=== PATIENT | female | born 1970 | race Caucasian/White ===

== ENCOUNTER 2021-02-17 10:03 | Day surgery (SDC) | payer MEDICAID ==
[~2021-02-17] VITALS: Ht 149.9 cm; Wt 60.3 kg
[2021-02-17] VITALS (8 sets, daily range): BP systolic 100–105; BP diastolic 61–71
[2021-02-17] MEDS ORDERED: cefazolin/dext.iso 2gm/100ml IV ONE (10:58)
[2021-02-17] MEDS ORDERED: famotidine 20mg tablet PO ONE (11:09)
[2021-02-17] MEDS ORDERED: albuterol 2.5 MG/3 ML nebule NEB PRN (11:10)
[2021-02-17] MEDS ORDERED: ringers solution, lacted 1,000 ML IV SCH (11:15)
[2021-02-17] MEDS ORDERED: LORazepam 1 MG tablet PO PRN (11:15)
[2021-02-17] MEDS ORDERED: LORazepam 0.5 MG tablet PO PRN (11:20)
[2021-02-17] MEDS ORDERED: LIDOcaine 0.5% (5mg/ml) 50ml vial ONE (11:21)
[2021-02-17] MEDS ORDERED: midazolam 1 mg/ML 2ml injection ONE (11:23)
[2021-02-17] MEDS ORDERED: fentaNYL/PF 50MCG/1 ML 2ML syringe ONE (11:23)
[2021-02-17 11:32] LABS: BASOPHILS % (AUTO) 0.6 % (0-1); EOSINOPHILS # (AUTO) 0.1 X10'3 (0-0.9); EOSINOPHILS % (AUTO) 1.9 % (0-6); LYMPHOCYTES # (AUTO) 2.5 X10'3 (1.1-4.8); LYMPHOCYTES % (AUTO) 31.2 % (21-51); MEAN CORPUSCULAR HEMOGLOBIN 32.3 PG (27.0-31.0); MEAN CORPUSCULAR HGB CONC 34.1 g/dL (33.0-36.5); MEAN CORPUSCULAR VOLUME 94.6 FL (78-98); MONOCYTES # (AUTO) 0.6 X10'3 (0-0.9); MONOCYTES % (AUTO) 7.5 % (2-12); NEUTROPHILS # (AUTO) 4.7 X10'3 (1.8-7.7); NEUTROPHILS % (AUTO) 58.8 % (42-75); PRE OP HEMATOCRIT 42.9 % (35.0-45.0); PRE OP HEMOGLOBIN 14.6 g/dL (12.0-16.0); PRE OP PLATELET COUNT 261 X10'3 (140-440); RED BLOOD COUNT 4.53 X10'6 (4.20-5.60); RED CELL DISTRIBUTION WIDTH 13.3 % (11.5-14.5)
[2021-02-17] MEDS ORDERED: BUPIVAcaine/PF 2.5mg/ml (0.25%) 10ml vial ONE ×2 (11:39→11:41)
[2021-02-17 11:52] LABS: ALBUMIN 3.4 G/DL (3.4-5.0); ALKALINE PHOSPHATASE 63 IU/L (46-116); BLOOD UREA NITROGEN 7 MG/DL (7-18); BUN/CREATININE RATIO 12.3 (6.6-38.0); CALCIUM 8.3 MG/DL (8.5-10.1); CHLORIDE 107 MMOL/L (99-107); CREATININE 0.57 MG/DL (0.40-0.90); PRE OP ALT 23 U/L (30-65); PRE OP ANION GAP 12 (8-16); PRE OP BILIRUB, TOTAL 0.5 MG/DL (0.0-1.0); PRE OP GLUCOSE 89 MG/DL (70-104); PRE OP SODIUM 142 MMOL/L (135-145); TOTAL CARBON DIOXIDE 23.1 MMOL/L (24-32); TOTAL PROTEIN 6.9 G/DL (6.4-8.2); eGFR > 90 ML/MIN
[2021-02-17 12:05] LABS: PRE OP AST 21 U/L (10-37); PRE OP POTASSIUM 4.1 MMOL/L (3.4-5.1)
--- NOTE | 2021-02-17 12:10 | NUR ---
Received from OR via [facility] IN STABLE CONDITION , accompanied by Anesthesiologist and PUBLIC RELATIONS ACCOUNT EXECUTIVE report given by PUBLIC RELATIONS ACCOUNT EXECUTIVE AND Anesthesiolgist. Addendum: 02/17/21 at 1233 by Cherise López RN Amended: Links added.
--- NOTE | 2021-02-17 13:20 | NUR ---
PATIENT DISCHARGED FROM PACU IN STABLE CONDITION AFTER VERBAL AND WRITTEN DISCHARGE INSTRUCTIONS GIVEN. PATIENT GAVE VERBAL UNDERSTANDING OF INSTRUCTIONS GIVEN. PATIENT LEFT FACILITY VIA WHEELCHAIR WITH RN. Addendum: 02/17/21 at 1330 by Cherise López RN Amended: Links added.
== END 2021-02-17 13:20 | disposition home or self-care (01) ==
LOC: PRE-OP 10:03
PROVIDERS: ATTEND Orthopaedic Surgery Hand Surgery
DX: S60.552A Superficial foreign body of left hand, initial encounter (principal); F43.10 Post-traumatic stress disorder, unspecified; F17.210 Nicotine dependence, cigarettes, uncomplicated; Z20.822 Contact with and (suspected) exposure to COVID-19; Z79.899 Other long term (current) drug therapy; Z90.49 Acquired absence of other specified parts of digestive tract; Z90.710 Acquired absence of both cervix and uterus; Z98.890 Other specified postprocedural states; Z86.73 Personal history of transient ischemic attack (TIA), and cerebral infarction without residual deficits; Z88.0 Allergy status to penicillin; Z88.5 Allergy status to narcotic agent; Z88.8 Allergy status to other drugs, medicaments and biological substances; Z91.09 Other allergy status, other than to drugs and biological substances; Z91.040 Latex allergy status; W25.XXXA Contact with sharp glass, initial encounter; Y93.89 Activity, other specified; Y92.89 Other specified places as the place of occurrence of the external cause; Y99.8 Other external cause status
CPT/HCPCS: 20520; 36415; 80053; 85025; 87635; 93005; A6222; C9803; J2001; J2250; J3010; J3490; J7120; Z7506; Z7512; A4215

== ENCOUNTER 2023-10-15 14:09 | Emergency (ER) | payer OTHER, MEDICAID ==
[~2023-10-15] VITALS: Ht 149.9 cm; Wt 72.0 kg
[2023-10-15] MEDS ORDERED: ketorolac trometh inj. 60 MG/2 ML VIAL IM ONE (15:35)
[2023-10-15] MEDS ORDERED: ketorolac tromethamine 15mg/ml inj. IM ONE (15:40)
[2023-10-15] MEDS: ketorolac tromethamine 15mg/ml inj. IM ONE (15:45)
[2023-10-15 15:58] VITALS: BP 128/79; PULSE 66; RESP 16; TEMP 98; O2SAT 98
== END 2023-10-15 16:02 | disposition home or self-care (01) ==
LOC: ER 14:09
DX: S60.212A Contusion of left wrist, initial encounter (principal); M79.89 Other specified soft tissue disorders; Z88.0 Allergy status to penicillin; Z88.8 Allergy status to other drugs, medicaments and biological substances; X58.XXXA Exposure to other specified factors, initial encounter; Y93.89 Activity, other specified; Y92.89 Other specified places as the place of occurrence of the external cause; Y99.8 Other external cause status
CPT/HCPCS: 29125; 73110; 96372; 99283; J1885

== ENCOUNTER → 2024-10-13 | Outpatient (CLI) | payer MEDICARE, MEDICAID | END | disposition home or self-care (01) | LOC: MRI02 10:23 | PROVIDERS: ATTEND Podiatrist Foot & Ankle Surgery | DX: M72.2 Plantar fascial fibromatosis (principal); M79.672 Pain in left foot; M25.471 Effusion, right ankle; M25.472 Effusion, left ankle; M79.671 Pain in right foot; M21.6X1 Other acquired deformities of right foot; M21.6X2 Other acquired deformities of left foot; R60.0 Localized edema; M77.52 Other enthesopathy of left foot and ankle | CPT/HCPCS: 73721 ==